=== PATIENT | male | born 1965 | race Caucasian/White ===

== ENCOUNTER 2022-03-04 14:35 | Outpatient (CLI) | payer BC | END 2022-03-04 14:36 | disposition home or self-care (01) | LOC: CSHMRI 14:35 | PROVIDERS: ATTEND Orthopaedic Surgery | DX: M25.511 Pain in right shoulder (principal); M75.111 Incomplete rotator cuff tear or rupture of right shoulder, not specified as traumatic; S43.431A Superior glenoid labrum lesion of right shoulder, initial encounter; M24.211 Disorder of ligament, right shoulder; M25.411 Effusion, right shoulder ==